=== PATIENT | female | born 1990 | race African-American/Black ===

== ENCOUNTER 2019-08-04 06:40 | Emergency (ER) | payer OTHER ==
[~2019-08-04] VITALS: Ht 162.6 cm; Wt 63.5 kg
[~2019-08-04 06:40] MED LIST: DEPO-PROVE150 MG/1 M IM; FLAGYL500 MG PO; GUMMY1 EACH PO; MACROBID 100 M100 M1 PO
[2019-08-04 07:26] LABS: URINE BILIRUBIN NEGATIVE (Negative); URINE BLOOD 3+ (Negative); URINE COLOR YELLOW; URINE GLUCOSE-RANDOM* NEGATIVE (Negative); URINE KETONES NEGATIVE (Negative); URINE LEUKOCYTES-REFLEX TRACE (Negative); URINE NITRITE-REFLEX NEGATIVE (Negative); URINE PROTEIN (DIPSTICK) 1+ (Negative); URINE SPECIFIC GRAVITY >= 1.030 (1.005-1.035)
[2019-08-04 07:28] LABS: URINE CLARITY CLOUDY
[2019-08-04 08:05] LABS: CASTS None Seen /LPF (None Seen); CRYSTALS None Seen /LPF (None Seen); SQUAMOUS >10 Many /LPF (0-3); URINE WBC-REFLEX >25 Many /HPF (0-5)
[2019-08-04 08:07] LABS: BACTERIA-REFLEX >30 Many /HPF (None Seen); URINE RBC 3-10 Few /HPF (0-2)
[2019-08-04] MEDS ORDERED: NITROFURANTOIN100 MG PO (08:31)
[2019-08-04] MEDS ORDERED: PYRIDIUM200 MG PO (08:31)
[2019-08-04 09:03] VITALS: BP 110/55
== END 2019-08-04 09:05 | disposition home or self-care (01) ==
LOC: ER 06:40
PROVIDERS: Emergency Medicine
DX: N30.00 Acute cystitis without hematuria (principal)